=== PATIENT | male | born 1970 | race Caucasian/White ===

== ENCOUNTER → 2016-07-28 | Outpatient (CLI) | payer BC ==
--- NOTE | 2016-07-28 17:34 | PCVCIMAG ---
APPROVED REPORT Study performed: 07/28/2016 07:50:32 EXAM: Comprehensive 2D, Doppler, and color-flow Echocardiogram Patient Location: Echo lab Status: routine Other Information Study Quality: Adequate Indications Dyspnea, smoking, strong family history of CAD. 2D Dimensions IVSd: 13.85 (7-11mm)LVOT Diam: 23.02 (18-24mm) LVDd: 48.02 mm LVPWs: 30.57 mm PWd: 10.86 (7-11mm)Ascending Ao: 33.73 (22-36mm) LVDs: 41.65 (25-40mm) Left Atrium: 30.91 (27-40mm) LV Single Plane 4CH: 48.19 % LV Single Plane 2CH: 64.90 %Carr's LVEF: 56.54 % Biplane EF: 58.1 % Volumes Left Atrial Volume (Systole) Single Plane 4CH: 27.02 mLSingle Plane 2CH: 31.59 mL LA ESV Index: 13.00 mL/m2 Aortic Valve AoV Peak Rafi.: 1.41 m/s AO Peak Gr.: 7.91 mmHgLVOT Max P.47 mmHg LVOT Max V: 1.37 m/s RACHEL Vmax: 4.04 cm2 AI Vmax: 3.98 m/s AI [place]: 0.23 m/s2 AI PHT: 5044.53 ms Mitral Valve E/A Ratio: 1.2 MV Decel. Time: 157.46 ms MV E Max Rafi.: 0.71 m/s MV A Rafi.: 0.60 m/s IVRT: 86.51 ms Pulmonary Valve PV Peak Gr.: 2.53 mmHg Pulmonary Vein P Vein S: 0.41 m/sP Vein A: 0.30 m/s P Vein D: 0.32 m/sP Vein A Dur.: 90.0 msec P Vein S/D Ratio: 1.28 Left Ventricle The left ventricle is normal size. There is normal LV segmental wall motion. There is normal left ventricular wall thickness. Left ventricular systolic function is normal. The left ventricular ejection fraction is within the normal range. LVEF is 55-60%. The left ventricular diastolic function is normal. Right Ventricle The right ventricle is normal size. The right ventricular systolic function is normal. Atria The left atrium size is normal. The right atrium size is normal. Aortic Valve The aortic valve is normal in structure. Mild aortic regurgitation. There is no aortic valvular stenosis. Mitral Valve The mitral valve is normal in structure. There is no mitral valve regurgitation noted. No evidence of mitral valve stenosis. Tricuspid Valve The tricuspid valve is normal in structure. There is no tricuspid valve regurgitation noted. Pulmonic Valve The pulmonary valve is normal in structure. Trace pulmonic regurgitation. Great Vessels The aortic root is normal in size. IVC is normal in size and collapses with >50% inspiration Pericardium There is no pericardial effusion. <Conclusion> The left ventricle is normal size. LVEF is 55-60%. The aortic valve is normal in structure. Mild aortic regurgitation. The mitral valve is normal in structure. The tricuspid valve is normal in structure. The pulmonary valve is normal in structure. Trace pulmonic regurgitation.
--- NOTE | 2016-07-28 17:53 | PCVCIMAG ---
APPROVED REPORT Exam: Nuclear Stress Test Indication: Chest Pain, Dyspnea Patient Location: Out Patient Stress Nurse: Lianne Tapia RN, Stefania Lion RN [place] Tech:Salvador Pringle NMTCB Ht: 6 ft 0 in Wt: 235 lbs BSA: 2.28 m2 HR: 70 bpm BP: 153/92 mmHg BMI: 31.8 Rhythm: NSR Medical History Medical History: hyperlipidemia, Current smoker Medications: Simvastatin Allergies: No known drug allergies Exercise History: Physically active NM EXAM: Myocardial Perfusion REST/STRESS Imaging Protocol: Rest Tc-99m/Stress Tc-99m 1 day Resting Data Rest SPECT myocardial perfusion imaging was performed in supine position 45 minutes following the intravenous injection of 11.5 mCi of Tc-99m Sestamibi. Time of rest injection: 824 Date: 07/28/2016 Exercise Stress At peak stress, the patient was injected intravenously with 36mCi of Tc-99m Sestamibi. Time of stress injection: 944 Date: 07/28/2016 Patient continued to exercise for 9 minute(s). The images were gated to evaluate regional wall motion and calculate left ventricular ejection fraction. Study Data Post stress, the left ventricular ejection was 60%.. SSS: 1 SRS: 3 SDS: 0 TID = 0.98. Perfusion There is a medium area of moderately reduced uptake in the basal and mid segment of the inferior wall which is seen on the stress images as well as the resting images. This area thickens and moves normally and is most consistent with attenuation artifact. Wall Motion Normal left ventricular wall motion. Nuclear Conclusion 1. LOW RISK STUDY Interpreted by: Nathalie Hemphill MD Electronically Approved: 07/28/2016 17:52:32 Stress Test Details Stress Test: Exercise stress testing was performed using a Reji protocol. HR Resting HR: 73 bpmMax Heart Rate (APMHR): 176 bpm Max HR Achieved: 160 bpmTarget HR (85% APMHR): 149 bpm % of APMHR: 90 Recovery HR: 93 bpm BP Resting BP: 153/92 mmHg Max BP: 206/94 mmHg Recovery BP: 140/75 mmHg ECG Resting ECG: Sinus Rhythm Stress ECG: Sinus Tachycardia; PAC Recovery ECG: Sinus Rhythm Clinical Reason for Termination: Dyspnea, Leg pain Stress Symptoms: Calf pain; Fatigue Exercise duration: 8 min 51 sec Exercise capacity: 10.4 METs Symptoms resolved during recovery. Stress ECG Conclusion 1. SUBJECTIVELY NEGATIVE FOR ISCHEMIA 2. ELECTROCARDIOGRAPHICALLY NEGATIVE FOR ISCCHEMIA 3. AVERAGE FUNCTIONAL CAPACITY <Conclusion> 1. SUBJECTIVELY NEGATIVE FOR ISCHEMIA 2. ELECTROCARDIOGRAPHICALLY NEGATIVE FOR ISCCHEMIA 3. AVERAGE FUNCTIONAL CAPACITY
== END | disposition home or self-care (01) ==
LOC: PCVCIMAG 07:47
PROVIDERS: ATTEND Internal Medicine
DX: I37.1 Nonrheumatic pulmonary valve insufficiency (principal); I35.1 Nonrheumatic aortic (valve) insufficiency; I25.10 Atherosclerotic heart disease of native coronary artery without angina pectoris; F17.200 Nicotine dependence, unspecified, uncomplicated; E78.5 Hyperlipidemia, unspecified; Z82.49 Family history of ischemic heart disease and other diseases of the circulatory system
CPT/HCPCS: 78452; 93017; 93306; A9500